=== PATIENT | male | born 1950 | race Hispanic/Latino ===

== ENCOUNTER 2021-11-23 15:29 | Emergency (ER) | payer MEDICARE ==
[~2021-11-23] VITALS: Ht 172.7 cm; Wt 129.3 kg
[2021-11-23] MEDS ORDERED: MUPIROCIN22 GM TOP (17:54)
== END 2021-11-23 18:05 | disposition home or self-care (01) ==
LOC: FSED 15:38
DX: S80.821A Blister (nonthermal), right lower leg, initial encounter (principal); R23.8 Other skin changes; W22.09XA Striking against other stationary object, initial encounter; Y93.E1 Activity, personal bathing and showering; Y92.002 Bathroom of unspecified non-institutional (private) residence as the place of occurrence of the external cause; I10 Essential (primary) hypertension; M06.9 Rheumatoid arthritis, unspecified; M10.9 Gout, unspecified; H40.9 Unspecified glaucoma
CPT/HCPCS: 99282